=== PATIENT | female | born 1995 | race Hispanic/Latino ===

== ENCOUNTER 2019-10-27 00:43 | Emergency (ER) | payer OTHER ==
[~2019-10-27] VITALS: Ht 162.6 cm; Wt 52.3 kg
[2019-10-27 02:13] LABS: BASO % 0.4 % (0.0-1.0); EOS # 0.3 10^3/uL (0.0-0.5); EOS % 3.1 % (0.0-3.0); HEMATOCRIT 24.7 % (36.0-47.0); HEMOGLOBIN 8.2 g/dl (12.0-15.5); LYMPH # 1.7 10^3/uL (1.5-5.0); LYMPH % 20.3 % (24.0-44.0); MEAN CORPUSCULAR HEMOGLOBIN 29.2 pg (27.0-33.0); MEAN CORPUSCULAR HGB CONC 33.2 g/dl (32.0-36.5); MEAN CORPUSCULAR VOLUME 87.9 fl (80.0-96.0); MONO # 0.4 10^3/uL (0.0-0.8); MONO % 4.8 % (0.0-5.0); NEUTROPHILS # 5.8 10^3/uL (1.5-8.5); PLATELET COUNT, AUTOMATED 255 10^3/uL (150-450); RED BLOOD COUNT 2.81 10^6/uL (4.00-5.40); WHITE BLOOD COUNT 8.2 10^3/uL (4.0-10.0)
[2019-10-27] MEDS ORDERED: NS 1,000 ML IV ONE (02:15)
[2019-10-27] MEDS ORDERED: MORPHINE 4 MG/ML 1ML VIAL/SYRINGE (J2270) IV ONE (02:15)
[2019-10-27] MEDS ORDERED: ONDANSETRON 4MG/2ML VIAL IV ONE (02:15)
[2019-10-27 02:52] LABS: ALBUMIN 3.2 GM/DL (3.2-5.2); ALT/SGPT 13 U/L (12-78); BILIRUBIN,DIRECT 0.1 MG/DL (0.0-0.2); BILIRUBIN,TOTAL 0.3 MG/DL (0.2-1.0); BLOOD UREA NITROGEN 8 MG/DL (7-18); CALCIUM LEVEL 8.3 MG/DL (8.5-10.1); CARBON DIOXIDE LEVEL 26 MEQ/L (21-32); CHLORIDE LEVEL 108 MEQ/L (98-107); GLOMERULAR FILTRATION RATE > 60.0 (>60); GLUCOSE, FASTING 94 MG/DL (70-100); LIPASE 96 U/L (73-393); POTASSIUM SERUM 3.6 MEQ/L (3.5-5.1); SODIUM LEVEL 143 MEQ/L (136-145); TOTAL PROTEIN 5.9 GM/DL (6.4-8.2)
[2019-10-27] MEDS: GASTROGRAFIN SOLUTION 30ML PO SCH ×2 (03:14→03:48)
[2019-10-27] MEDS ORDERED: ISOVUE-370 76% 100ML VIAL As Ordered ONE (03:54)
[2019-10-27 04:15] VITALS: BP 103/62
--- NOTE | 2019-10-27 05:07 | REPVR ---
PROCEDURE INFORMATION: Exam: CT Abdomen And Pelvis With Contrast Exam date and time: 10/27/2019 2:11 AM Age: 24 years old Clinical indication: Abdominal pain; Generalized; Prior surgery; Surgery date: 3-7 days post-operative; Surgery type: Lap for ectopic; Additional info: Gen abd pain S/P laparoscopy for ruptured ectopic TECHNIQUE: Imaging protocol: Computed tomography of the abdomen and pelvis with intravenous contrast. Radiation optimization: All CT scans at this facility use at least one of these dose optimization techniques: automated exposure control; mA and/or kV adjustment per patient size (includes targeted exams where dose is matched to clinical indication); or iterative reconstruction. Contrast material: ISO; Contrast volume: 100 ml; Contrast route: AC; Other contrast: Oral, ggraphin, 600; COMPARISON: No relevant prior studies available. FINDINGS: Liver: Normal. No mass. Gallbladder and bile ducts: Normal. No calcified stones. No ductal dilation. Pancreas: Normal. No ductal dilation. Spleen: Normal. No splenomegaly. Adrenals: Normal. No mass. Kidneys and ureters: Normal. No hydronephrosis. Stomach and bowel: Copious stool in the colon. No abnormal bowel dilatation. No abnormal bowel wall thickening. Appendix: Appendix is normal. Intraperitoneal space: Moderate hemoperitoneum in the pelvis. Small free air in the abdomen and pelvis. Vasculature: Unremarkable. No abdominal aortic aneurysm. Lymph nodes: Unremarkable. No enlarged lymph nodes. Bladder: 1 bladder is partially decompressed. Reproductive: Uterus is normal. Bones/joints: Unremarkable. No acute fracture. Soft tissues: Small gas in the subcutaneous tissue in the ventral abdomen. IMPRESSION: 1. Moderate hemoperitoneum in the pelvis. 2. Copious stool in the colon. 3. Small free air in the abdomen and pelvis. Consistent with postsurgical status. Electronically signed by: Wanda Monroy On 10/27/2019 05:07:13 AM
[2019-10-27] MEDS ORDERED: PERC5TAB12 PO (05:46)
== END 2019-10-27 06:00 | disposition home or self-care (01) ==
LOC: M ED 00:43
DX: G89.18 Other acute postprocedural pain (principal); R10.9 Unspecified abdominal pain
CPT/HCPCS: 74177; 80048; 80076; 81001; 83690; 85025; 93041; 96361; 96374; 96375; 99284; J2270; J2405; Q9963; Q9967

== ENCOUNTER 2020-02-03 14:43 | Emergency (ER) | payer OTHER ==
[~2020-02-03] VITALS: Ht 162.6 cm; Wt 53.0 kg
[~2020-02-03 14:43] MED LIST: PERC5TAB12 PO
[2020-02-03] MEDS ORDERED: CYCL-707 PO (14:48)
[2020-02-03] MEDS ORDERED: IBUP-1114 PO (14:48)
[2020-02-03] MEDS ORDERED: KETOROLAC 30 MG/ML 1ML VIAL IV ONE (16:30)
[2020-02-03] MEDS ORDERED: NS 1,000 ML IV ONE (16:30)
[2020-02-03 16:57] LABS: BASO # 0.1 10^3/uL (0.0-0.2); BASO % 0.5 % (0.0-1.0); EOS # 0.2 10^3/uL (0.0-0.5); EOS % 2.4 % (0.0-3.0); HEMATOCRIT 40.6 % (36.0-47.0); HEMOGLOBIN 12.7 g/dl (12.0-15.5); LYMPH # 2.3 10^3/uL (1.5-5.0); LYMPH % 25.1 % (24.0-44.0); MEAN CORPUSCULAR HEMOGLOBIN 26.3 pg (27.0-33.0); MEAN CORPUSCULAR HGB CONC 31.3 g/dl (32.0-36.5); MEAN CORPUSCULAR VOLUME 84.2 fl (80.0-96.0); MONO # 0.5 10^3/uL (0.0-0.8); MONO % 5.7 % (0.0-5.0); PLATELET COUNT, AUTOMATED 322 10^3/uL (150-450); RED BLOOD COUNT 4.82 10^6/uL (4.00-5.40); WHITE BLOOD COUNT 9.2 10^3/uL (4.0-10.0)
--- NOTE | 2020-02-03 17:21 | REPVR ---
PROCEDURE INFORMATION: Exam: US Pelvis Complete, Transabdominal and US Pelvis, Transvaginal and US Duplex Artery and Vein, Ovaries, Complete Exam date and time: 02/03/2020 5:08 PM Age: 24 years old Clinical indication: Pelvic pain; Additional info: Pelvic pain, recent iud TECHNIQUE: Imaging protocol: Real-time transabdominal and transvaginal pelvic ultrasound (complete) with image documentation. Transvaginal imaging was used for better evaluation of the endometrium and adnexa. Real-time duplex ultrasound scan of the arterial and venous flow of the ovaries with B-mode, color Doppler flow and spectral waveform analysis. COMPARISON: CT ABD/PEL W/IV ORAL CONTRAS 10/27/2019 4:48 AM FINDINGS: Uterus/cervix: 6.7 x 3.2 x 4.1 cm. Normal endometrial thickness, measuring approximately 5 mm. Intrauterine device in adequate position. Right ovary: 3 x 1.9 x 2.2 cm. No mass. Normal arterial and venous ovarian blood flow. Left ovary: 4 x 2.3 x 3.5 cm. 1.9 x 1.7 x 2 cm follicle. No solid mass. Normal arterial and venous ovarian blood flow. Intraperitoneal space: Trace nonspecific free pelvic fluid, likely physiologic. Bladder: Normal. IMPRESSION: No acute sonographic findings. Electronically signed by: Luis Cain On 02/03/2020 17:22:07 PM
[2020-02-03] MEDS ORDERED: MIRA3350 PO (19:10)
[2020-02-03] MEDS ORDERED: MAGNESIUM CITRATE 300 ML BTL PO ONE (19:15)
[2020-02-03 19:28] VITALS: BP 114/73
--- NOTE | 2020-02-13 18:27 | REP ---
KUB REASON FOR EXAM: Hard stool. FINDINGS: A moderate to large amount of stool is seen throughout the right colon with moderate stool content throughout the transverse and distal colon. There is no free intraperitoneal air. The organ silhouettes and so far as delineated are within normal limits. There is a T-shaped radiodensity in the pelvis consistent with an intrauterine device (IUD). The osseous structures are within normal limits. IMPRESSION: Stool pattern as described above. Correlate clinically. MTDD
== END 2020-02-03 19:30 | disposition home or self-care (01) ==
LOC: M ED 14:43
DX: K59.00 Constipation, unspecified (principal); R10.30 Lower abdominal pain, unspecified; Z97.5 Presence of (intrauterine) contraceptive device
CPT/HCPCS: 74018; 76830; 76856; 80047; 81001; 84702; 85025; 93976; 96361; 96374; 99284; J1885

== ENCOUNTER 2020-05-30 06:11 | Day surgery (SDC) | payer OTHER ==
[~2020-05-30] VITALS: Ht 162.6 cm; Wt 49.9 kg
[~2020-05-30 06:11] MED LIST changes: +CYCL-707 PO; +IBUP-1114 PO; +MIRA3350 PO
[2020-05-30 06:39] LABS: HEMATOCRIT 42.1 % (36.0-47.0); HEMOGLOBIN 12.9 g/dl (12.0-15.5); MEAN CORPUSCULAR HEMOGLOBIN 25.7 pg (27.0-33.0); MEAN CORPUSCULAR HGB CONC 30.6 g/dl (32.0-36.5); PLATELET COUNT, AUTOMATED 337 10^3/uL (150-450); RED BLOOD COUNT 5.01 10^6/uL (4.00-5.40); WHITE BLOOD COUNT 7.1 10^3/uL (4.0-10.0)
[2020-05-30] MEDS ORDERED: ACETAMINOPHEN 650 MG SUPP PR ONE (07:00)
[2020-05-30] MEDS ORDERED: LR 1,000 ML IV ONE (07:00)
[2020-05-30 07:03] LABS: BLOOD UREA NITROGEN 10 MG/DL (7-18); CARBON DIOXIDE LEVEL 27 MEQ/L (21-32); CHLORIDE LEVEL 109 MEQ/L (98-107); GLOMERULAR FILTRATION RATE > 60.0 (>60); GLUCOSE, FASTING 93 MG/DL (70-100); HCG, SERUM QUANTITATIVE < 1.0 MIU/ML; POTASSIUM SERUM 4.2 MEQ/L (3.5-5.1); SODIUM LEVEL 142 MEQ/L (136-145)
[2020-05-30] MEDS ORDERED: BUPIVACAINE HCL 0.25% 10ML VIAL As Ordered ONE (07:11)
[2020-05-30] MEDS ORDERED: METHYLENE BLUE 0.5% (5MG/ML) 10 ML AMP (PROVAYBLUE) As Ordered ONE (07:12)
[2020-05-30] MEDS ORDERED: SCOPOLAMINE 1MG TRANSDERMAL PATCH As Ordered ONE (07:17)
[2020-05-30] MEDS ORDERED: LIDOCAINE 2% 100MG/5ML SDV (FOR ANES.) As Ordered ONE (07:20)
[2020-05-30] MEDS ORDERED: propofoL 200 MG/20 ML VIAL As Ordered ONE ×2 (07:20→07:53)
[2020-05-30] MEDS ORDERED: ROCURONIUM BROMIDE 50 MG/5 ML VIAL As Ordered ONE (07:20)
[2020-05-30] MEDS ORDERED: fentaNYL 100 MCG/2 ML INJECTION (J3010) As Ordered ONE ×2 (07:21→08:06)
[2020-05-30] MEDS ORDERED: dexameTHASONE 4 MG/ML 1ML VIAL (J1100 PER 1MG) As Ordered ONE (07:21)
[2020-05-30] MEDS ORDERED: ONDANSETRON 4MG/2ML VIAL As Ordered ONE ×2 (07:21→09:12)
[2020-05-30] MEDS ORDERED: MIDAZOLAM INJ 2MG/2ML VIAL (J2250 PER 1MG) As Ordered ONE (07:21)
[2020-05-30] MEDS ORDERED: ACETAMINOPHEN 650 MG SUPP As Ordered ONE (07:25)
[2020-05-30] MEDS ORDERED: SCOPOLAMINE 1MG TRANSDERMAL PATCH TOP ONE (07:45)
[2020-05-30] MEDS ORDERED: KETOROLAC 60MG 2ML VIAL As Ordered ONE (08:25)
[2020-05-30] MEDS ORDERED: SUGAMMADEX SODIUM 500 MG/5 ML VIAL (BRIDION) As Ordered ONE (08:26)
[2020-05-30] MEDS ORDERED: METOCLOPRAMIDE INJ 10MG/2ML VIAL (J2765 PER 1) As Ordered ONE (08:30)
[2020-05-30] MEDS ORDERED: LR 1,000 ML IV SCH (09:15)
[2020-05-30] MEDS ORDERED: ONDANSETRON 4MG/2ML VIAL IV PRN (09:15)
[2020-05-30] MEDS ORDERED: oxyCODONE 5MG TAB PO PRN (09:15)
[2020-05-30] MEDS: fentaNYL 100 MCG/2 ML INJECTION (J3010) IV PRN ×2 (09:28→09:33)
[2020-05-30] MEDS ORDERED: HYDROMORPHONE HCL 0.5 MG/ 0.5 ML SYRINGE (J1170 PER 1) IV PRN (09:30)
[2020-05-30 10:30] VITALS: BP 110/75
[2020-05-30] MEDS ORDERED: KETOROLAC 30 MG/ML 1ML VIAL IV PRN (12:30)
--- NOTE | 2020-05-31 11:59 | RO ---
OPERATIVE NOTE DATE OF OPERATION: 05/30/2020 PREOPERATIVE DIAGNOSIS: Right lower quadrant pain, post-ectopic . POSTOPERATIVE DIAGNOSIS: Stage 1 endometriosis, inflammatory effect post-ectopic , nonpatent left fallopian tube. ANESTHESIA: General, plus local anesthetic for intraperitoneal procedures. ESTIMATED BLOOD LOSS: Less than 20 mL. SURGEON: Azael Covington MD POISING INSPECTOR: Carmina Goldberg MD PROCEDURE: After adequate time out prepped and draped in lithotomy position. Betts catheter in the bladder draining clear urine. Acetaminophen suppository 1300 mg per rectum, sequentials in place, no antibiotics required. COVID negative. A weighted speculum was placed in the vagina. Single tooth tenaculum was placed on the anterior lip of the cervix. The IUCD strings were noted to be in place. A bulb catheter was placed in the intrauterine cavity after sounding to depth of 6 cm in order to chromotubate the left fallopian tube. Re-prepping and draping a small subumbilical incision was made. Veress needle was applied. 3.8 liters of CO2 at flow rate of 14 to pressure of 15. Direct entry into the abdomen, no evidence of hemorrhage, perforation or bleeding. Right upper quadrant appeared to be normal. Gallbladder area was normal. Right round ligament was normal. Right ovary and tube were removed. There were spots of endometriosis on the proximal end of what remained of the tube on the right side. The patient is menstruating at the present time and there are various stages of endometriosis. Red spots, there are some dark spots and white spots indicating endometriosis in various stages. The most striking thing is the inflammatory process in the posterior aspect of the uterus with this white shaggy type inflammatory effect, either post-ectopic or end stage of endometriosis. On the left side the left round ligament was normal. The left cornual area was white with some white again inflammatory effect and two or three spots of endometriosis actively on that side. The left ovary appeared to be normal. The left tube had a normal contour, had normal fimbriated end. We would document this lady as having stage 1 endometriosis, no evidence of endometriosis on the appendiceal area. There was no evidence of adhesions. No evidence of scar tissue. Explanation for this lady's pelvic pain may be the endometriosis. We then attempted to chromotubate the left tube. The uterus itself filled but the cornu on the left side did not fill at all indicating possibility of cornual obstruction, either related to endometriosis or silent previous STD. Etiology either way did not produce any spill or patency from the cornu down through normal looking tube. With instrument and pad count correct we reevaluated again and found no other evidence of pathology. The left upper quadrant was normal. We then went ahead and removed the right 3 mm port. We then deflated the abdomen, removed the mainstem port, subcuticular stitches were placed in either site. Steri-Strips were applied. The Betts catheter was removed. Single tooth tenaculum was removed. The IUCD strings were still in place. The patient was sent to recovery in good condition. Options for this lady could be short course of Depo-Lupron of 3 months to see if it resolves the issue of her pain and reduce the endometriosis that is active. She still has a Mirena in which is probably not effective for endometriosis. The other option is after 3 month course of Depo-Lupron do hysterosalpingogram to evaluate tubal function on the left side and/or repeat the laparoscopy to stage and grade any residual endometriosis. The final option would be if cornu is still compromised she could do IUI or in vitro. All options will be discussed with the patient. The patient was sent to recovery in good condition. cc: Jose David Hernandes OB
== END 2020-05-30 10:35 | disposition home or self-care (01) ==
LOC: M SDC 06:11
PROVIDERS: ATTEND Obstetrics & Gynecology
DX: N80.3 Endometriosis of pelvic peritoneum (principal); R10.31 Right lower quadrant pain; M54.5 Low back pain; Z90.79 Acquired absence of other genital organ(s); Z97.5 Presence of (intrauterine) contraceptive device
CPT/HCPCS: 36415; 58350; 80048; 84702; 85027; 96374; 96375; J1100; J1885; J2250; J2405; J2765; J3010; Q9968

== ENCOUNTER 2020-07-27 12:36 | Emergency (ER) | payer OTHER ==
[~2020-07-27] VITALS: Ht 162.6 cm; Wt 50.0 kg
--- OUTSIDE RECORDS SUMMARY | 2020-07-27 13:12 | CCD ---
Author Author [facility] Organization [facility] Address Unknown Phone Unavailable Care Team Providers Care Core Inserter Name Role Phone Dodard, Jersey DO Unavailable Unavailable Dodard, Jersey DO Unavailable Unavailable Dodard, Jersey DO Unavailable Unavailable Dodard, Jersey DO Unavailable Unavailable Dodard, Jersey DO Unavailable Unavailable Dodard, Jersey DO Unavailable Unavailable Dodard, Jersey DO Unavailable Unavailable Dodard, Jersey DO Unavailable Unavailable Dodard, Jersey DO Unavailable Unavailable Dodard, Jersey DO Unavailable Unavailable Dodard, Jersey DO Unavailable Unavailable Dodard, Jersey DO Unavailable Unavailable Dodard, Jersey DO Unavailable Unavailable Dodard, Jersey DO Unavailable Unavailable Dodard, Jersey DO Unavailable Unavailable Dodard, Jersey DO Unavailable Unavailable Dodard, Jersey DO Unavailable Unavailable Dodard, Jersey DO Unavailable Unavailable Dodard, Jersey DO Unavailable Unavailable Dodard, Jersey DO Unavailable Unavailable Dodard, Jersey DO Unavailable Unavailable Dodard, Jersey DO Unavailable Unavailable Dodard, Jersey DO Unavailable Unavailable Dodard, Jersey DO Unavailable Unavailable Dodard, Jersey DO Unavailable Unavailable Dodard, Jersey DO Unavailable Unavailable Dodard, Jersey DO Unavailable Unavailable Dodard, Jersey DO Unavailable Unavailable Dodard, Jersey DO Unavailable Unavailable Dodard, Jersey DO Unavailable Unavailable Dodard, Jersey DO Unavailable Unavailable Dodard, Jersey DO Unavailable Unavailable Dodard, Jersey DO Unavailable Unavailable Dodard, Jersey DO Unavailable Unavailable Dodard, Jersey DO Unavailable Unavailable Dodard, Jersey DO Unavailable Unavailable Dodard, Jersey DO Unavailable Unavailable Dodard, Jersey DO Unavailable Unavailable Dodard, Jersey DO Unavailable Unavailable Dodard, Jersey DO Unavailable Unavailable Dodard, Jersey DO Unavailable Unavailable Dodard, Jersey DO Unavailable Unavailable Dodard, Jersey DO Unavailable Unavailable Dodard, Jersey DO Unavailable Unavailable VENERUS, Iftikhar SHARMA MD Unavailable Unavailable VENERUS, J LG PARKER Unavailable Unavailable VENERUS, J LG PARKER Unavailable Unavailable VENERUS, J LG PARKER Unavailable Unavailable VENERUS, J LG PARKER Unavailable Unavailable VENERUS, J LG MD Unavailable Unavailable VENERUS, J LG MD Unavailable Unavailable VENERUS, J LG MD Unavailable Unavailable VENERUS, J LG PARKER Unavailable Unavailable Re-disclosure Warning The records that you are about to access may contain information from federally-assisted alcohol or drug abuse programs. If such information is present, then the following federally mandated warning applies: This information has been disclosed to you from records protected by federal confidentiality rules (42 CFR part 2). The federal rules prohibit you from making any further disclosure of this information unless further disclosure is expressly permitted by the written consent of the person to whom it pertains or as otherwise permitted by 42 CFR part 2. A general authorization for the release of medical or other information is NOT sufficient for this purpose. The Federal rules restrict any use of the information to criminally investigate or prosecute any alcohol or drug abuse patient.The records that you are about to access may contain highly sensitive health information, the redisclosure of which is protected by Article 27-F of the [facility] Public Health law. If you continue you may have access to information: Regarding HIV / AIDS; Provided by facilities licensed or operated by the [facility] Office of Mental Health; or Provided by the [facility] Office for People With Developmental Disabilities. If such information is present, then the following [facility] mandated warning applies: This information has been disclosed to you from confidential records which are protected by state law. State law prohibits you from making any further disclosure of this information without the specific written consent of the person to whom it pertains, or as otherwise permitted by law. Any unauthorized further disclosure in violation of state law may result in a fine or half-way sentence or both. A general authorization for the release of medical or other information is NOT sufficient authorization for further disc losure. Allergies and Adverse Reactions Type Description Substance Reaction Status Data Source(s ) No Known Allergies No Known Allergies [facility] Encounters Encounter Providers Location Date Indications Data Source(s ) Outpatient Attender: Jersey Tillman DOAttender: LG Loving MD 10/22/2019 10:52:00 PM EDT - 10/23/2019 03:10:00 PM EDT [facility] Patient discharged. Outpatient 10/22/2019 07:02:00 PM EDT [facility] Insurance Providers Payer name Policy type / Coverage type Policy ID Covered republican ID Covered republican's relationship to hurtado Policy [place] Plan Information [facility] ACTIVE DUTY [id number] SP [id number] [facility] HUMANA - O/P [id number] 18 [id number] Problems, Conditions, and Diagnoses Code Display Name Description Problem Type Effective Dates Data Source(s) [id number] Right tubal without intrauteri ne Right tubal without intrauterine Diagnosis 10/22/2019 10:52:00 PM EDT [facility] Results ID Date Data Source [id number] 07/05/2020 10:49:00 AM EST [facility] Name Value Range Interpretation Code Description Data Cindy rce(s) Supporting Document(s) SARS coronavirus 2 RNA Not Detected [facility] This lab was ordered by [facility] Laboratory and reported by [facility]. ID Date Data Source [id number] 05/26/2020 11:10:00 AM EST [facility] Name Value Range Interpretation Code Description Data Cindy rce(s) Supporting Document(s) SARS coronavirus 2 RNA [facility] This lab was ordered by [facility] Laboratory and reported by [facility]. ID Date Data Source [id number] 10/23/2019 11:00:00 [place] [address] OPERATIVE SUMMARYNAME: BUDDY EUGENIO Loving DATE OF : 1995ATTENDING PHYS: JERSEY TILLMAN DO DATE: 10/22/19 MR#: [id number] OF PROCEDURE: 10/22/19HISTORY OF PRESENT ILLNESS:This patient is a 24-year-old female who was admitted through the emergency room afterpresenting with extreme abdominal pain. She was found to have a ruptured right ectopic .She was then taken to the operating room for exploratory laparoscopy and removal of ectopic.PREOPERATIVE DIAGNOSIS: 1. Ruptured ectopic . 2. Acute abdominal pain.POSTOPERATIVE DIAGNOSIS: 1. Ruptured ectopic . 2. Acute abdominal pain. 3. Ruptured right fallopian ectopic with approximately 1 liter of clotted blood in her belly.PROCEDURE: 1. Laparoscopic right salpingectomy. 2. Evacuation of hemoperitoneum.ANESTHESIA: General.SURGEON: Jersey Tillman DOCOMPLICATIONS: None.ESTIMATED BLOOD LOSS: 1000 cc hemoperitoneumFINDINGS: A ruptured right ectopic approximately 8 weeks in size with large amountof hemoperitoneum. Normal appearing left ovary and tube.DESCRIPTION OF PROCEDURE:After obtaining informed consent, the patient was taken to the operating room where generalanesthetic was found to be adequate. She was then draped and prepped in the usual sterile fashionin the dorsal lithotomy position. At this point, a straight catheter of the bladder was performed forapproximately 200 cc of clear urine. We then placed a uterine manipulator. Attention was turned tothe abdomen where a 10 mm infraumbilical incision was made. Using the Veress needle, the [address] [place] [place] [address] OPERATIVE SUMMARYNAME: BUDDY Loving DATE OF : 1995ATTENDING PHYS: JERSEY TILLMAN DO DATE: 10/22/19 MR#: [id number] was insufflated with CO2 gas to approximately 3.5 liters. We then placed a 10-11 mmTrocar on the right side. At this point, the abdomen and pelvis were inspected. A large amount ofhemoperitoneum noted with a ruptured right ectopic . The Guicho harmonic scalpel wasused with the patient in Trendelenburg. The fallopian tube was transected all the way up to thecornual area and this was removed with the ectopic through an endobag. The pelvis was thencopiously irrigated with normal saline and suctioned out. Approximately 1000 cc ofhemoperitoneum was evacuated. The entire abdomen was irrigated with normal saline andsuctioned out. No other evidence of bleeding noted. At this point, all the laparoscopic instrumentswere removed. The laparoscopic ports were closed using 0-Vicryl fascia and Dermabond on theskin. Please note that the patient did received 2 units of packed RBCs intraoperative and she wastransferred to the recovery room in stable condition.cc: [facility].DD: JERSEY TILLMAN DO 10/22/19 23:03DT: ABHINAV 10/23/19 22:49DS: JERSEY TILLMAN DO 11/16/19 15:16 2 Name Value Range Interpretation Code Description Data Cindy rce(s) Supporting Document(s) ID Date Data Source [id number] 10/22/2019 11:33:00 [place] [address] HISTORY AND PHYSICALNAME: BUDDY Loving ROOM#: [id number] OF : 1995 MR#: [id number] PHYS: JERSEY TILLMAN DO DATE: 10/22/19HISTORY OF PRESENT ILLNESS:This patient is a 24-year-old female who was brought to the emergency room via ambulance after presentingwith acute sharp abdominal pain. While in the emergency room, she was evaluated and was found to have aright ectopic with free fluid in the abdomen. Upon my evaluation, the patient was found on astretcher in extreme abdominal pain, unable to barely speak. Her vitals were reviewed. She was tachycardicand currently receiving fluid and waiting a blood transfusion. Her full records were evaluated as well as theultrasound reviewed.PAST MEDICAL HISTORY:Denies.PAST SURGICAL HISTORY:Denies.SOCIAL HISTORY:She denies any alcohol, drug or cigarette smoking.REVIEW OF SYSTEMS:Unremarkable.MEDICATIONS:None.ALLERGIES:No known drug allergies.PHYSICAL EXAMINATION:GENERAL: Normal appearing female in mild to severe distress on stretcher.ABDOMEN: Mildly distended with significant guarding and rebound.PELVIC: Examination deferred.EXTREMITIES: No cyanosis, clubbing or edema.LABORATORY DATA:Ultrasound reviewed and was consistent with a ruptured ectopic , which was documented atapproximately 8 weeks with a heart rate.ASSESSMENT: 1. Ruptured ectopic . [address] [place] [address] HISTORY AND PHYSICALNAME: BUDDY Loving ROOM#: [id number] OF : 1995 MR#: [id number] PHYS: JERSEY TILLMAN DO DATE: 10/22/19 2. Acute abdomen.PLAN:Admit patient to the OR for laparoscopic removal of right ectopic and evacuation ofhemoperitoneum. Informed consent obtained from the patient. Awaiting the OR for an exploratorylaparoscopy.cc: [facility].DD: JERSEY TILLMAN DO 10/22/19 23:07DT: ABHINAV 10/22/19 23:27DS: JERSEY TILLMAN DO 11/16/19 15:16 2 Name Value Range Interpretation Code Description Data Cindy rce(s) Supporting Document(s) ID Date Data Source [id number] 10/25/2019 11:14:00 AM EDT [facility] [address] [place] [address] PHONE: [phone] FAX: [phone] Name .................. : BUDDY EUGENIO Inder Acct Number.................. : [id number] ROOM. ................. : 008-1 MR Number ................... : [id number] Stay type ............. : O/P Discharge Date......... ... : Admit Date ......... : 0 10/22/19 Admit Phys .................... : LAYNE COELLO Date of ....... : 1995 Family Phys ................... : UNKNOWN NADIA Phone .................. : [phone] Age ................................ : 24 Film# .................. .:[id number] Sex ................................. : F Unsigned transcriptions are preliminary reports and do not represent a medical or legal document OB 1ST TRI UP TO 14 WEEKS [address]59 COMPLETE:10/22/19 19:39 [facility] [address] Reason(s): / Abdominal pain / cramps FIRST TRIMESTER OB ULTRASOUND: INDICATION: , abdominal pain and cramping. FINDINGS: There is no evidence of an intrauterine . In the right adnexa, there is an ectopic and measurements estimated gestational age of 8 weeks 1 day. The right ovary is sonographically normal. There is a 2.1 cm simple cyst in the left ovary, within normal limits for a reproductive age female. Free fluid is noted throughout the pelvis. IMPRESSION: Right adnexal ectopic with an estimated gestational age of 8 weeks 1 day and a heart rate of 161 beats p er minute. Electronically Reviewed and Signed By Austin Leary M.D. , 10/25/19 11:14, DONNA Transcribe Initials: [place] Transcribe Date: 10/22/19 23:36, Dictation Date: Copy for: EMERGENCY DEPT via mode Copy for: 710 MED REC DISCHARGED Page 1 of 1 Name Value Range Interpretation Code Description Data Cindy rce(s) Supporting Document(s) ID Date Data Source [id number] 10/22/2019 06:29:00 PM EDT [facility] 1 OrderSheet [facility] Emergency Department [address] [place] [address] Phone #: ext- [phone] 10/22/2019 18:23 Patient: EUGENIO GOODWIN Sex: F : 1995 Age: 24yWEIGHT:50.8 kg (S) HEIGHT:64 inches (S) BMI:19.2ALLERGIES: NoneCHIEF COMPLAINT: abdominal painDIAGNOSIS: Ectopic pregnancyLAB ORDERSOrder Description Priority Entered Acknowledged InitialedUrinalysis (Clean STAT 18:28 10/22/2019 Ack'd: 18:44Catch) Zuri Kim Physician; R.N.Blood Culture STAT 18:10/22/2019 18:39 Amy King0m X2 (Sched Lg Reyes R.N.18:28 10/22/2019) Physician;Blood Culture STAT 18:10/22/2019 18:39 Amy King0m X2 (Sched Lg Reyes R.N.18:38 10/22/2019) Physician;CBC w Diff STAT 18:10/22/2019 18:39 Simi King RJorgeNJorge Physician;CMP STAT 18:10/22/2019 18:39 Simi King RJorgeNJorge Physician;CPK STAT 18:10/22/2019 18:39 Simi King RJorgeNJorge Physician;D-Dimer STAT 18:10/22/2019 18:39 Simi King RAmaury Physician;HCG Serum Qual STAT 18:10/22/2019 18:39 Simi King RJorgeNJorge Physician;Lipase STAT 18:10/22/2019 18:39 Simi King RAmaury Physician;Lactic Acid STAT 18:10/22/2019 18:39 Simi King RJorgeNJorge Physician; 2 OrderSheet [facility] Emergency Department [address] [place] [address] Phone #: ext- [phone] 10/22/2019 18:23 Patient: EUGENIO GOODWIN Sex: F : 1995 Age: 24yUrine Drug Screen STAT 19:07 10/22/2019 Lg Reyes Physician;Beta-HCG, Quant STAT 19:12 10/22/2019 19:41 Sorbero,Serum Lg Nicoals R.N. Physician;Blood Bank -see STAT 19:32 10/22/2019 19:41 Sorbero,paper order Lg Nicolas R.N. Physician; NOTES: Type and cross 2 units PRBCsDIAGNOSTIC STUDY ORDERSOrder Description Priority Entered Acknowledged InitialedUS OB 1ST TRI UP STAT 19:15 10/22/2019 19:41 Sorbjanel,TO 14 WEEKS Lg Nicolas R.N.(Oxygen?(No)) Physician;(IV?(Yes)) NOTES: Abdominal cramps / pregnan cy Reason for Study: / Abdominal pain / crampsMEDICATION/IV/DRIP/FLUID ORDERSOrder Description Priority Entered Acknowledged InitialedIV NS : Bolus 1000 18:28 10/22/2019 Ack'd: 18:44 18:52 Sorbero,mL, then 250 mL/hr Zuri Kim R.N.(can be titrated per Physician; R.N.additionalphysicianinstruction)Zofran 4 mg IVP X 1 18:28 10/22/2019 18:39 Nuha Kingose: 4 mg (NOW Lg Reyes R.NJorgex1) Physician;Protonix IVPB 40 18:28 10/22/2019 18:39 Simi Kingmg with Dextrose Lg Reyes R.N.100 ml spike bag Physician;(D5W)Morphine IVP 2 mg 18:29 10/22/2019 18:32 Martin(NOW, HIGH ALERT Lg Keating R.N.MEDICATION) Physician;Morphine IVP 2 mg 18:45 10/22/2019 18:51 Arben(NOW, HIGH ALERT Lg Nicolas RJorgeNJorgeMEDICATION) Physician;NS IV : Bolus 1000 19:29 10/22/2019 19:43 Sorbero,mL, then 1000 Lg Nicolas R.N. 3 OrderSheet [facility] Emergency Department [address] [place] [address] Phone #: ext- [phone] 10/22/2019 18:23 Patient: EUGENIO GOODWIN Sex: F : [birth year] Age: 24ymL/hr (can be Physician;titrated peradditionalphysicianinstruction)GENERAL ORDERSOrder Description Priority Entered Acknowledged InitialedCardiac Monitor 18:10/22/2019 18:32 Martin(continuous) Lg Keating R.N. Physician;EKG 18:10/22/2019 18:40 Simi King R.N. Physician;Saline Lock 18:10/22/2019 18:32 Lg Salazar R.N. Physician;Pulse oximeter 18:10/22/2019 18:32 Martin(Continuous) Lg Keating R.N. Physician;[Electronically signed by Lg Reyes (00:07 10/23/2019)][Electronically signed by Fidencio Theodore R.N. (10:02 10/25/2019)][Electronically locked by Fidencio Theodore R.N. (10:10/25/2019)] Name Value Range Interpretation Code Description Data Cindy rce(s) Supporting Document(s) ID Date Data Source [id number] 10/22/2019 06:29:00 PM EDT [facility] 1 Medication Reconciliation Report [facility] Emergency Department [address] [place] [address] Phone #: ext- [phone] 10/22/2019 18:23 Patient: EUGENIO GOODWIN Sex: F : 1995 Age: 24yWeight: 50.8 kgHeight/Length: 64 in.BMI: 19.2ALLERGIES: NoneThe patient's Home Medications are listed below:NONE.The source(s) of the original Home Medication information:patientThe following Medications were given to the patient in the Emergency Department:Morphine [IVP] IVP 2 mg, administe red: 10/22/2019 6:32:00 PMZofran [IVP] IVP 4 mg, administered: 10/22/2019 6:39:00 PMProtonix [IVPB] IVPB bolus 0, then 40 mg 100 mL/hr, administered: 10/22/2019 6:39:00 PMMorphine [IVP] IVP 2 mg, administered: 10/22/2019 6:51:00 PMIV NS IV Fluids bolus 0, then 1500 mL/hr, administered: 10/22/2019 6:52:00 PMNS [IV] IV Fluids bolus 0, then 1500 mL/hr, administered: 10/22/2019 7:43:00 PMThe following Medications were prescribed to the patient:None. Name Value Range Interpretation Code Description Data Cindy rce(s) Supporting Document(s) ID Date Data Source [id number] 10/22/2019 06:29:00 PM EDT [facility] 1 Medication Administration Record [facility] Emergency Department [address] [place] [address] Phone #: ext- [phone] 10/22/2019 18:23 Patient: EUGENIO GOODWIN Sex: F : 1995 Age: 24yWeight: 50.8 kgHeight/Length: 64 inBMI: 19.2ALLERGIES: None Date/Time Medication Administered Medication OrderedStart IV NS IV NS : Bolus 1000 mL, then 21299:52 10/22/2019 Dose: IV Fluids mL/hr (can be titrated Fidencio Alicia R.N. Rate: 1500 mL/hr over 40 minute(s) additional physician instruction)---- Dispensed: 1000 mL bagStop Site: #2 right AC19:31 10/22/2019Fidencio Theodore R.N.Given ZOFRAN [IVP] (ONDANSETRON HCL) Zofran 4 mg IVP X 1 dose: 4 mg18:39 10/22/2019 Dose: 4 mg IVP (NOW x1)Simi King R.N. Site: #1 left ACStart PROTONIX [IVPB] (PANTOPRAZOLE Protonix IVPB 40 mg with18:39 10/22/2019 SODIUM) Dextrose 100 ml spike bag (D5W)Simi King R.N. Dose: 40 mg IVPB---- Rate: 100 mL/hr over 30 minute(s)Stop Dispensed: 50 mL bag19:42 10/22/2019 Site: #1 left Fidencio Rodríguez R.N.Given MORPHINE [IVP] Morphine IVP 2 mg (NOW, HIGH18:32 10/22/2019 Dose: 2 mg IVP ALERT MEDICATION)Zuri Salazar R.N. Site: #1 left ACGiven MORPHINE [IVP] Morphine IVP 2 mg (NOW, HIGH18:51 10/22/2019 Dose: 2 mg IVP ALERT MEDICATION)Fidencio Theodore R.N. Site: #2 right ACStart NS [IV] NS IV : Bolus 1000 mL, then 263089:43 10/22/2019 Dose: IV Fluids mL/hr (can be titrated Fidencio Alicia R.N. Rate: 1500 mL/hr over 40 minute(s) additional physician instruction)---- Dispensed: 1000 mL bagStop Site: #2 right AC20:24 10/22/2019Fidencio Theodore R.N. Name Value Range Interpretation Code Description Data Cindy rce(s) Supporting Document(s) ID Date Data Source [id number] 10/22/2019 06:29:00 PM EDT [facility] 1 General Instructions [facility] Emergency Department [address] [place] [address] Phone #: ext- [phone] 10/22/2019 18:23 Patient: EUGENIO GOODWIN Sex: F : 1995 Age: 24yRuptured right tubal ectopic with hypotension and shock; positive test in emergencydepartment. Ultrasound demonstrated an extrauterine .(Electronically signed by Lg Reyes, Physician 10/23/2019 00:07) Name Value Range Interpretation Code Description Data Cindy rce(s) Supporting Document(s) ID Date Data Source [id number] 10/22/2019 06:29:00 PM EDT [facility] 1 Clinical Report - Nurses [facility] Emergency Department [address] [place] [address] Phone #: [phone] 10/22/2019 18:23 Patient: EUGENIO GOODWIN Sex: F : 1995 Age: 24yTRIAGEArrived by private vehicle. Historian: EMS.Triage time: 18:23 10/22/2019. Acuity: LEVEL 2.Chief Complaint: ABDOMINAL PAIN.Alert. In distress.Onset. (45 MINUTES AGO). ( Per EMS pt states she was sleeping and woke up suddenly with sharp,severe, diffuse abd pain, unknown if pt may be . Per EMS pt original BP was 86/50, started torecieve 500 cc bolus and last SBP 115.). The patient has had nausea. ( Pt c/o 12 mile ruck august. Pt still has appendix. Per EMS pt was quite diaphoretic when they arrived).Treatment HOLE DIGGER:(4mg Zofran).SEPSIS SCREEN: Sepsis Screen negative. No suspected or confirmed signs of infection present. (18:). --18:31 10/22/19 Zuri Salazar R.N.18:23 10/22/19. BP: 104/63. MAP: 76. HR: 73. RR: 17. O2 saturation: 100%. Temp: 96.8 F (temporal).Pain level now: 03/18. --18:31 10/22/19 Zuri Salazar R.N.Weight: 50.8 kg stated. Height/Length: 64 inches Per Patient. BMI: 19.2. --18:22 10/22/19 Zuri Salazar R.N.MedicationsNone. --18:27 10/22/19 Zuri Salazar R.N.AllergiesNone. --18:27 10/22/19 Zuri Salazar R.N.PROBLEMS:no known problems.Medication/allergy information source: the patient. --18:31 10/22/19 Zuri Salazar R.N.ADDITIONAL SURGERIES:no known surgeries.HistoryPAST MEDICAL HX: Last normal menstrual period- 08/30/19.SOCIAL HX: Never smoker. No alcohol use or drug use. Recent travel- (none). The patient has had 2 Clinical Report - Nurses [facility] Emergency Department [address] [place] [address] Phone #: ext- [phone] 10/22/2019 18:23 ---- Patient: EUGENIO GOODWIN Sex: F : 1995 Age: 24y contact with a sick individual. (none). The patient was offered HIV testing but declined. The patient was offered hepatitis C testing but declined. Patient education was provided. The patient has not traveled outside the [place] Infectious disease exposure: Patient is not a known carrier of hepatitis, HIV, MRSA, VRE or CRE. SELF HARM ASSESSMENT: Self harm assessment was performed. The patient answered "no" to the question(s) "Do you have thoughts of harming or killing yourself?" and "Do you have a plan for harming or killing yourself?". ABUSE ASSESSMENT: Abuse assessment. The patient had positive responses to the question(s) "Do you feel safe in your home?". Abuse denied. No suspicion of abuse. No report of abuse. NUTRITIONAL RISK ASSESSMENT: The nutritional risk assessment revealed no deficiencies. FUNCTIONAL ASSESSMENT: Functional assessment: no impairments noted. LEARNING NEEDS ASSESSMENT: The learning needs assessment revealed no barriers. FALL RISK ASSESSMENT: Fall risk assessment completed. No risk factors identified. SKIN INTEGRITY ASSESSMENT: Skin integrity risk assessment completed. No skin integrity risk identified. --18:31 10/22/19 Zuri Salazar R.N. Interventions Identification band on patient. --18:31 10/22/19 Zuri Salazar R.N.PHYSICAL [id number] 10/22/19. To room via stretcher. Patient gowned.GENERAL / NEURO / PSYCH: Alert. Oriented X 4. Appears in pain and in distress.HEENT: Mucous membranes are pink.RESPIRATORY: Respirations not labored. Breath sounds within normal limits.CVS: Capillary re fill less than 2 seconds.GI / : Abdomen soft and nontender. Bowel sounds within normal limits.SKIN: Skin is warm and dry. --18:44 10/22/19 Fidencio Theodore R.N.NURSING PROGRESS NOTES18:28 10/22/2019 Site #1 started prior to arrival by EMS via IV in the left antecubital space with an 18gangiocath, with aseptic technique and good blood return. --18:32 10/22/19 Zuri Salazar R.N. 18:32 10/22/2019 Morphine IVP 2 mg given over 2 minute(s) via site #1. Allergies verified and confirmed 5 rights. IV patency established. IV site checked: no pain, redness, or swelling. IV flushed thoroughly pre- and post-medication administration. IVP given by RN. Information reviewed with patient including reason for taking this medication, signs of allergic reaction, precautions and sedative warning. Verbalizes understanding. --18:32 10/22/19 Zuri Salazar R.N. 3 Clinical Rep ort - Nurses [facility] Emergency Department [address] [place] [address] Phone #: ext- [phone] 10/22/2019 18:23 Patient: EUGENIO GOODWIN Sex: F : 1995 Age: 24yCardiac monitor, NIBP monitor and pulse oximeter placed on patient; color television console monitor- Lead II; monitoralarms on; monitor strip added to paper chart. Patient gowned. Reassurance given. Three patientidentifiers checked. Call light placed in reach. Side rails up x 2. Bed placed in lowest position. Brakesof bed on. Patient ready for evaluation- ED physician notified. --18:32 10/22/19 Zuri Salazar R.N.18:33 10/22/2019 Site #2 started via IV in the right antecubital space with an 20g angiocath, with aseptictechnique and good blood return; one attempt. Blood drawn: rainbow set. Labeled in the presence of thepatient and sent to the lab. Saline lock flushed with 10 mL saline (placed by Angel Theodore RN). --18: Zuri Salazar R.N.18:39 10/22/2019 Zofran (Ondansetron HCl) IVP 4 mg given over 2 minute(s) via site #1. Allergies verifiedand c onfirmed 5 rights. IV patency established. IV site checked: no pain, redness, or swelling. IV flushedthoroughly pre- and post-medication administration. IVP given by RN. Information reviewed with patientincluding reason for taking this medication, signs of allergic reaction and precautions. Verbalizesunderstanding. --18:39 10/22/19 Simi King R.N.18:39 10/22/2019 Started 40 mg of Protonix (Pantoprazole Sodium) IVPB in bag #1 50 mL; at 100 mL/hrover 30 minute(s) via site #1. via IV pump. Allergies verified and confirmed 5 rights. IV patency established.IV site checked: no pain, redness, or swelling. IV flushed thoroughly pre- and post-medicationadministration. Information reviewed with patient including reason for taking this medication, signs ofallergic reaction and precautions. Verbalizes understanding. --18:39 10/22/19 Simi King R.N.18:51 10/22/2019 Morphine IVP 2 mg given over 2 minute(s) via site #2. Allergies verified and confirmed 5rights. IV patency established. IV site checked: no radha n, redness, or swelling. IV flushed thoroughly pre-and post-medication administration. Information reviewed with patient including reason for taking thismedication, signs of allergic reaction, precautions and sedative warning. Verbalizes understanding.--18:51 10/22/19 Fidencio Theodore R.N.18:52 10/22/2019 Started bag #1 1000 mL IV Fluids IV NS; at 1500 mL/hr over 40 minute(s) via site #2 viaIV pump. Allergies verified and confirmed 5 rights. IV patency established. IV site checked: no pain,redness, or swelling. IV flushed thoroughly pre- and post-medication administration. Information reviewedwith pat ient including reason for taking this medication, signs of allergic reaction and precautions.Verbalizes understanding. --18:52 10/22/19 Fidencio Theodore RRajan.EKG time: (late entry - 18:42 10/22/2019). EKG was ordered, performed by a nurse and shown to the EDphysician. --18:53 10/22/19 Zuri Salazar R.N.Reassurance given. Reassessment acuity: LEVEL 2. Reassessment after medication administered. Noadverse reaction. Pain still present. Overall patient status is improved- she states feels better. ( clarisa made aware patient wants more pain medication. has had 4 mg morphine so far. hold off ongiving anymore bp = 97/50).GI / : The patient reports abdominal pain.SKIN: Skin is warm and dry. Skin color within normal limits. Two patient identifiers checked. Call light 4 Clinical Report - Nurses [facility] Emergency Department [address] [place] [address] Phone #: [phone] ext- [phone] 10/22/2019 18:23 Patient: EUGENIO GOODWIN Sex: F : 1995 Age: 24y placed in reach. Side rails up x 2. Bed placed in lowest position. Brakes of bed on. --19:12 10/22/19 Fidencio Theodore R.NJorge 19:31 10/22/2019 IV Fluids IV NS via IV site #2 Discontinued: bag #1 completed. Total amount infused: 1000 mL. IV patency established. IV site checked: no pain, redness, or swelling. IV flushed thoroughly. --19:41 10/22/19 Fidencio Theodore R.NJorge 19:42 10/22/2019 Protonix IVPB via IV site #1 Discontinued: bag #1 completed. Total amount infused: 100 mL. --19:42 10/22/19 Fidencio Theodore R.NJorge 19:43 10/22/2019 Started bag #2 1000 mL IV Fluids NS; at 1500 mL/hr over 40 minute(s) via site #2 via IV pump. Allergies verified and confirmed 5 rights. IV patency established. IV site checked: no pain, redness, or swelling. IV flushed thoroughly pre- and post-medication administration. Information reviewed with patient including reason for taking this medication, signs of allergic reaction and precautions. Verbalizes understanding. --19:43 10/22/19 Fidencio Theodore RJorgeNJorge 18:45 10/22/19. BP: 108/60. MAP: 76. HR: 71. RR: 16. O2 saturation: 100%. --19:57 10/22/19 Greenpie Fransisca, [employer] 19:07 10/22/19. BP: 97/58. MAP: 71. HR: 63. O2 saturation: 97%. --19:59 10/22/19 Greenpie Fransisca [employer] 19:30 10/22/19. BP: 89/42. MAP: 57. HR: 99. RR: 20. O2 saturation: 100%. --19:59 10/22/19 [facility], [facility] Tech1 19:45 10/22/19. BP: 79/61. MAP: 67. HR: 76. RR: 16. O2 saturation: 100%. --20:00 10/22/19 [facility], Fransisca, ER Tech1 20:24 10/22/2019 IV Fluids NS via IV site #2 Discontinued: bag #2 completed upon admission. Total amount infused: 1000 mL. IV patency established. IV site checked: no pain, redness, or swelling. IV flushed thoroughly. --20:24 10/22/19 Fidencio Theodore R.N.DISPOSITION / DISCHARGE 20:13 10/22/2019 Site #[address] upon admission; patent, no pain and no signs of infection or infiltration. Good blood return present. Flushed with 10 mL saline; flushes easily. --20:23 10/22/19 Fidencio Theodore R.N. 20:18 10/22/19. Departure time: 20:23 10/22/2019. The goals identified in the patient's plan of care were met. Fall risk assessment completed. No risk factors identified. Admitted via Surgery. Transported via stretcher by nurse with IV. Report was given to a nurse in person. Report included information regarding patient's treatment, allergies and condition including: recent changes, current vital signs and critical or pending labs. Report included treatment information regarding medications given or pending; type and amount of IV fluids and medications infusing and total volume infused. All questions were answered. Report was 5 Clinical Report - Nurses [facility] Emergency Department [address] [place] [address] Phone #: ext- [phone] 10/22/2019 18:23 Patient: EUGENIO GOODWIN Sex: F : 1995 Age: 24y acknowledged and care was transferred. --20:25 10/22/19 Fidencio Theodore R.N. 20:23 10/22/19. BP: 96/54. MAP: 68. HR: 90. RR: 26. O2 saturation: 100%. Temp: 98.6 F. Pain level now: 02/16. --20:25 10/22/19 Fidencio Theodore R.N.Locked/Released at 10/25/2019 10:02 by Fidencio Theodore R.N. Name Value Range Interpretation Code Description Data Cindy rce(s) Supporting Document(s) ID Date Data Source [id number] 10/22/2019 06:29:00 PM EDT [facility] 1 Clinical Report - Physicians/Mid Levels [facility] Emergency Department [address] [place] [address] Phone #: ext- [phone] 10/22/2019 18:23 Patient: EUGENIO GOODWIN Sex: F : 1995 Age: 24y Time Seen: 18:19 10/22/2019. Arrived- By ambulance. Historian- EMS personnel. Disposition decision: 20:23 10/22/2019.HISTORY OF PRESENT ILLNESS Chief Complaint: ABDOMINAL PAIN. It is described as "pain", sharp, stabbing, cramping and diffuse and it is described as generalized in location. This started just prior to arrival today Sudden, diffuse abdominal pain after long august today at [facility]. and is still present and worsening. It was abrupt in onset. When seen in the E.D., severity described as severe and 10 / 10. Modifying factors- worsened by movement, walking, cough and deep breaths. The patient has had nausea and loss of appetite. (Pt. said she might be .). No recent travel. Similar symptoms previously. None. Recent medical care: Not recently seen/assessed.REVIEW OF SYSTEMSNo constipation, black stools, hematemesis, difficulty with urination or pain with urination. No urinaryfrequency, bloody stools, fever, headache or sore throat. No blurred vision, chest pain, difficulty breathing,cough or joint pain. No skin rash, chi lls or back pain. Denies current . The patient has nothad weight loss. Might be .PAST HISTORYPast history not negative. See nurses notes. Possibly .SOCIAL HISTORYNever smoker. No alcohol use or drug use. No recent travel.ADDITIONAL NOTESThe nursing notes have been reviewed with agreement regarding the chief complaint, HPI, ROS, PMH andpatient medications and allergies.PHYSICAL EXAMVital Signs: 10/22/2019 18:23 BP: 104/63. MAP: 76. HR: 73. RR: 17. O2 saturation: 100%. Temp: 96.8 F.Pain level now: 03/18. Have been reviewed and appear to be correct. Hypotensive. Heart rate normal .Respiratory rate normal. Temperature normal. Oxygen saturation normal.Appearance: Alert. Oriented X3. Anxious. Appears to be in pain. Patient in severe distress. Indistress.Eyes: Pupils equal, round and reactive to light. Eyes inspection not normal. Pale conjunctivae.ENT: Nose normal. Pharynx abnormal. Dry mucous membranes present.Neck: Normal inspection. Neck supple. 2 Clinical Report - Physicians/Mid [facility] Emergency Department [address] [place] [address] Phone #: ext- [phone] 10/22/2019 18:23 Patient: EUGENIO GOODWIN Sex: F : 1995 Age: 24y CVS: Normal heart rate. Heart sounds normal. Pulses normal. Respiratory: No respiratory distress. Painless inspiration. Breath sounds normal. Chest nontender. Abdomen: Soft. Severe tenderness diffusely. Bowel sounds normal. No organomegaly. No mass. Tenderness present. Back: Normal inspection. Skin: Skin warm and dry. Pallor. Abnormal skin color. No rash. Normal skin turgor. Extremities: Extremities exhibit normal ROM. No lower extremity edema. Neuro: Oriented X 3. No motor deficit. No sensory deficit.LABS, X-RAYS, AND EKGLaboratory Tests: Laboratory tests have been ordered, with results reviewed and considered in themedical decision making process. .BB RBC UNIT: (PATRICIA: 10/22/2019 20:46) ( [facility] 10/22/2019 21:18) Final results RE-TYPE: (PATRICIA: 10/22/2019 20:19) ( [facility] 10/22/2019 20:52) Final results Test Result Flag Units (Reference) RE-TYPE BLOOD BANK RE-TYPE ABO GROUP O RH TYPE POSITIVE { ABO/RH RE-ENTER O POSITIVE Blood Bank -see paper order: (PATRICIA: 10/22/2019 19:32) ( [facility] 10/22/2019 19:36) Canceled CMTS: Type and cross 2 units PRBCs OB 1ST TRI UP TO 14 WEEKS: (PATRICIA: 10/22/2019 19:15) ( [facility] 10/22/2019 19:39) In Progress OB 1ST TRI UP TO 14 WEEKS Reason(s): / Abdominal pain / cramps TRANSPORTATION: S IV? IV?(Yes) O2? Oxygen?(No) Ro : Yes CMTS: Abdominal cramps / Beta-HCG, Quant Serum: (PATRICIA: 10/22/2019 18:36) ( [facility] 10/22/2019 19:39) Final results Test Result Flag Units (Reference) HCG QUANT 01516.0 mIU/mL Interpretation: Less than 5 mU/mL: Negative 6-10 mU/mL: Borderline (suggest repeat in 48 hours) >10: Positive Approx HCG range (mU/mL) Weeks post LMP 5.4-708 mU/mL 3-4 Weeks 217-56377 mU/mL 5-6 Weeks 4059-580049 mU/mL 7-8 Weeks 35121-586885 mU/mL 9-10 Weeks 97520-45117 mU/mL 12-14 Weeks 63942-42326 mU/mL 15-16 Weeks 8240-53579 mU/mL 17-18 Weeks Type and Screen: (PATRICIA: 10/22/2019 18:36) ( MsgRcvd 10/22/2019 20:51) Final results Test Result Flag Units (Reference) ABO GROUP O RH TYPE POSITIVE AB SCREEN NEGATIVE (NORMAL: NEGAT 3 Clinical Report - Physicians/Mid Levels [facility] Emergency Department [address] [place] [address] Phone #: ext- [phone] 10/22/2019 18:23 Patient: EUGENIO GOODWIN Sex: F : 1995 Age: 24y { ABO/RH REENTER O POSITIVE{ AB SCREEN RE-ENTER NEGATIVECrossmatch (Blood Bank): (PATRICIA: 10/22/2019 18:36) ( MsgRcvd 10/22/2019 20:55) Final results Test Result Flag Units (Reference) CROSSMATCH \\MR Hx\\\\16PI\\\\LM10\\\\TM00\\ \\BLDo\\\\UNDo\\COMPATABILITY TESTING:\\UNDx\\\\BLDx\\ \\UNDo\\PATIENTINFORMATION\\UNDx\\ ABO GROUP O RH TYPE POSITIVE AB SCREEN NEGATIVE { ABO/RH RE-ENTER O POSITIVE{ AB SCREEN RE- ENTER NEGATIVE \\UNDo\\DONORINFORMATION\\UNDx\\ UNIT NUMBER _[id number] 10/22/19.DW .[facility]# 63 EXPIRATION DATE _05192_10/22/19.DW .{ ABO/RH O POS{ XMATCH RESULT COMPATABLE{ COMPONENTLRPCCrossmatch (Blood Bank): (PATRICIA: 10/22/2019 18:36) ( MsgRcvd 10/22/2019 20:59) Final results Test Result Flag Units (Reference) CROSSMATCH \\MRHx\\\\16PI\\\\LM10\\\\TM00\\ \\BLDo\\\\UNDo\\COMPATABILITY TESTING:\\UNDx\\\\BLDx\\ \\UNDo\\PATIENTINFORMATION\\UNDx\\ ABO GROUP O RH TYPE POSITIVE AB SCREEN NEGATIVE { ABO/RH RE-ENTER O POSITIVE{ AB SCREEN RE- ENTER NEGATIVE \\UNDo\\DONORINFORMATION\\UNDx\\ UNIT NUMBER _[id number] 10/22/19.DW .[facility]# 64 EXPIRATION DATE _05192_10/22/19.DW .{ ABO/RH O POS{ XMATCH RESULT COMPATIBLE{ COMPONENTLRPCCBC w Diff: (PATRICIA: 10/22/2019 18:36) ( MsgRcvd 10/22/2019 19:14) Final results Test Result Flag Units (Reference) CBC W/AUTOMATED DIFF COMPLETE BLOOD COUNT WBC 12.4 H 10/uL (4.2 - 11.0) RBC 3.56 L 10/uL (4.20 - 5.40) HEMOGLOBIN 9.4 L g/dL (12.0 - 16.0) HEMATOCRIT 29.9 L % (37.0 - 47.0) MCV 84.0 fL (81.0 - 101) MCH 26.4 L pg (27.0 - 34.0) MCHC 31.4 g/dL (31.0 - 36.0) RDW 13.1 % (11.5 - 14.5) PLATELETS 301 10/uL (150 - 450) MPV 10.1 fL (7.4 - 10.4) NEUT 66.2 % (37.0 - 80.0) LYMPH 26.5 % (25.0 - 40.0) MONO 5.1 % (3.0 - 8.0) EOS 1.7 % (0.0 - 7.0) BASO 0.2 % (0.0 - 2.5) %IG 0.3 H % (0.0 - 0.0) %NRBC 0.0 % (0.0 - 0.0) #NEUT 8.20 H 10/uL (2.00 - 6.90) #LYMPH 3.28 10/uL (0.60 - 3.40) 4 Clinical Report - Physicians/Mid Levels [facility] Emergency Department [address] [place] [address] Phone #: pfv- [phone] 10/22/2019 18:23 Patient: EUGENIO GOODWIN Sex: F : 1995 Age: 24y #MONO 0.63 10/uL (0.00 - 0.90) #EOS 0.21 10/uL (0.00 - 0.70) #BASO 0.03 10/uL (0.00 - 0.20) #IG 0.04 10/uL (0.00 - 0.10) #NRBC 0.00 10/uL (0.00 - 0.00) MANUAL DIFF NOT INDICATED RBC MORPH NOT INDICATEDCMP: (PATRICIA: 10/22/2019 18:36) ( MsgRcvd 10/22/2019 19:13) Final results Test Result Flag Units (Reference) COMPREHENSIVE METABOLIC PANEL COMPREHENSIVE METABOLIC PANEL SODIUM 138 mEq/L (134 - 153) POTASSIUM 3.5 L mEq/L (3.6 - 5.0) CHLORIDE 104 mEq/L (98 - 107) CO2 21 L MEQ/L (22 - 30) GLUCOSE 137 H MG/DL (65 - 110) BUN 9 MG/DL (7 - 21) CREATININE 0.6 L MG/DL (0.7 - 1.5) BUN/CREAT 15 (8 - 27) TOTAL PROTEIN 5.8 L G/DL (6.3 - 8.2) ALBUMIN 3.9 G/DL (3.9 - 5.0) GLOBULIN 1.9 L GM/DL (2.4 - 3.2) A/G RATIO 2.1 H (0.8 - 2.0) CALCIUM 8.6 MG/DL (8.4 - 10.2) TOTAL BILI <0.7 MG/DL (0.2 - 1.3) ALKALINE PHOS 46 U/L (38 - 126) SGOT/AST 12 U/L (5 - 40) SGPT/ALT 5 L U/L (7 - 56) ANION GAP 13.0 mmol/L (8.0 - 16.0) AGE 24 yrs NON- AA GFR >60 mL/min AFR AMER GFR >60 mL/min Male GFR Interprentation 20-49 yrs >60 mL/min Npuxxa18-19 yrs >56 mL/min Normal 60- 69 yrs >49 mL/min Normal 70-79yrs>42 mL/min Normal 80 and above >35 mL/min Normal Female GFRInterpretation 20-39 yrs >60 mL/min Normal 40-49 yrs >58 mL/minNormal 50-59 yrs >51 mL/min Normal 60-69 yrs >45 mL/min Cdvcby50-07 yrs >39 mL/min Normal 80 and above >32 mL/min NormalCPK: (PATRICIA: 10/22/2019 18:36) ( [facility] 10/[facility] 19:10) Final results Test Result Flag Units (Reference) CPK 56 U/L (30 - 170)D-Dimer: (PATRICIA: 10/22/2019 18:36) ( WigRcvd 10/22/2019 19:15) Final results Test Result Flag Units (Reference) D-DIMER QUANT 0.64 H ug/mL (0.27 - 0.50)Beta-HCG, Qual Serum: (PATRICIA: 10/22/2019 18:36) ( MsgRcvd 10/22/2019 19:11) Final results Test Result Flag Units (Reference) HCG SERUM QUAL POSITIVE (NORMAL: NEGAT HCG SERUM QL REENTER POSITIVE (NORMAL: NEGAT { KIT LOT # [id number] ){ KIT EXP [id number] ){ PROCEDURAL CONTROL VALID) 5 Clinical Report - Physicians/Mid Levels [facility] Emergency Department [address] [place] [address] Phone #: ext- [phone] 10/22/2019 18:23 Patient: EUGENIO GOODWIN Sex: F : 1995 Age: 24y Lipase: (PATRICIA: 10/22/2019 18:36) ( MsgRcvd 10/22/2019 19:10) Final results Test Result Flag Units (Reference) LIPASE 28 U/L (13 - 60) Lactic Acid: (PATRICIA: 10/22/2019 18:36) ( MsgRcvd 10/22/2019 19:13) Final results Test Result Flag Units (Reference) LACTIC ACID 3.6 HH MMOL/L (0.2 - 2.2) CALL/ READ BACK DR LG REYES BY: LILIA DATE/TIME . Note - Tests: (Pelvic ultrasound - Right ruptured ectopic . FHR 161).PROGRESS AND PROCEDURESCourse of Care: 19:33 Oct 22 2019. Patient is unstable. 19:33 Oct 22 2019. Pt. has ruptured ectopic and I am increasing IV fluids and T x Cross for PRBCs. I have called Dr. Richardson (BID MANAGER mems integration engineer) and he is on the way. Anesthesia and OR team are on the way in. 19:59 Oct 22 2019. Pt. hypotensive and pale. PRBCs are typed and crossed and thawing. OR team is here and BID MANAGER surgeon (Dylan) is on the way. 20:[address] Richardson and OR team just took pt. to OR for surgery. No blood was ready to be transfused here in ED. Critical care performed (120 minutes). Time is exclusive of separate ly billable procedures. Time includes: direct patient care, patient reassessment, coordination of patient care, interpretation of data (laboratory data and pulse oximetry), review of patient's medical records, medical consultation and documentation of patient care- see progress notes. Procedures included in critical care time: peripheral IV placement and phlebotomy- see progress notes. Disposition: Admitted to Obstetrics / Gynecology. 20:24 Oct 22 2019 Pt. to OR for emergent surgery with Dr. Richardson and then to OB service. UTI (catheter associated) was not present prior to admission. Pressure ulcer was not present prior to admission. Vascular infection (catheter associated) was not present prior to admission. Surgical site infection was not present prior to admission. An object left in surgery was not present prior to admission. Blood incompatibility was not present prior to admission. Air embolism was not present prior to admission.CLINICAL IMPRESSION Ruptured right tubal ectopic with hypotension and shock; positive test in emergency department. Ultrasound demonstrated an extrauterine . 6 Clinical Report - Physicians/Mid Levels [facility] Emergency Department [address] [place] [address] Phone #: ext- [phone] 10/22/2019 18:23 Patient: EUGENIO GOODWIN Sex: F : 1995 Age: 24y(Electronically signed by Lg Reyes, Physician 10/23/2019 00:07) Name Value Range Interpretation Code Description Data Cindy rce(s) Supporting Document(s) ID Date Data Source [id number] 10/23/2019 01:33:00 [place] [address] RESPIRATORY CARE REPORT ==== ---------NAME------- NUMBER SEX AGE ADMIT DISC. XRAY# F/C RAJI EUGENIO Loving [id number] 10/22/19 [id number] SB4 O/P DATE OF : 1995 M/R# [id number] #: [id number] LOCATION: EMERGENCY DEPT [facility] [address] [facility] LETE:10/23/19 07:[place] [id number] PHYSICIAN: LAYNE HERR Name Value Range Interpretation Code Description Data Cindy rce(s) Supporting Document(s) ID Date Data Source [id number] 10/23/2019 08:03:00 AM EDT [facility] Name Value Range Interpretation Code Description Data Cindy rce(s) Supporting Document(s) CBC W/AUTOMATED DIFF [facility] COMPLETE BLOOD COUNT Leukocytes [#/volume] in Blood by Automated count 21.2 10^3/uL 4.2 - 11.0 H [facility] Erythrocytes [#/volume] in Blood by Automated count 3.19 10^6/uL 4. 20 - 5.40 L [facility] Hemoglobin [Mass/volume] in Blood 9.2 g/dL 12.0 - 16.0 L [facility] Hematocrit [Volume Fraction] of Blood by Automated count 27.0 % 3 7.0 - 47.0 L [facility] Erythrocyte mean corpuscular volume [Entitic volume] by Auto mated count 84.6 fL 81.0 - 101 [facility] Erythrocyte mean corpuscular hemoglobin [Entitic mass] by Automated count 28.8 pg 27.0 - 34.0 [facility] Erythrocyte mean corpuscular hemoglobin concentration [Mass/volume] by Automated count 34.1 g/dL 31.0 - 36.0 [facility] Erythrocyte distribution width [Ratio] by Automated count 13.2 % 11.5 - 14.5 [facility] Platelets [#/volume] in Blood by Automated count 183 10^3/uL 150 - 45 0 [facility] Platelet mean volume [Entitic volume] in Blood by Automated count 10.5 fL 7.4 - 10.4 H [facility] Neutrophils/100 leukocytes in Blood by Automated count 93.7 % 37. 0 - 80.0 H [facility] Lymphocytes/100 leukocytes in Blood by Manual count 3.7 % 25.0 - 40.0 L [facility] Monocytes/100 leukocytes in Blood by Automated count 2.2 % 3.0 - 8.0 L [facility] Eosinophils/100 leukocytes in Blood by Automated count 0.0 % 0.0 - 7.0 [facility] Basophils/100 leukocytes in Blood by Automated count 0.0 % 0.0 - 2.5 [facility] %IG 0.4 % 0.0 - 0.0 H [facility] al %NRBC 0.0 % 0.0 - 0.0 [facility] al Neutrophils [#/volume] in Blood by Automated count 19.80 10^3/uL 2. 00 - 6.90 H [facility] Lymphocytes [#/volume] in Blood by Automated count 0.79 10^3/uL 0.60 - 3.40 [facility] Monocytes [#/volume] in Blood by Automated count 0.46 10^3/uL 0.00 - 0.90 [facility] Eosinophils [#/volume] in Blood by Automated count 0.00 10^3/uL 0.00 - 0.70 [facility] Basophils [#/volume] in Blood by Automated count 0.01 10^3/uL 0.00 - 0.20 [facility] #IG 0.09 10^3/uL 0.00 - 0.10 [facility] #NRBC 0.00 10^3/uL 0.00 - 0.00 [facility] MANUAL DIFF NOT INDICATED [facility] RBC MORPH NOT INDICATED [facility] sp[facility] ID Date Data Source [id number] 10/22/2019 09:14:00 PM EDT [facility] Name Value Range Interpretation Code Description Data Cindy rce(s) Supporting Document(s) ID Date Data Source [id number] 10/22/2019 08:51:00 PM EDT [facility] Name Value Range Interpretation Code Description Data Cindy rce(s) Supporting Document(s) RE-TYPE [facility] al BLOOD BANK RE-TYPE ABO group [Type] in Blood O [facility] Rh [Type] in Blood POSITIVE [facility] { ABO/RH RE-ENTER O POSITIVE ID Date Data Source [id number] 10/29/2019 12:44:00 PM EDT [facility] Name Value Range Interpretation Code Description Data Cindy rce(s) Supporting Document(s) CULTURE BLOOD [facility] Ho spital _CULTURE BLOOD_{ PRELIM TEST PERFORMED AT [address] [address] CLIA# [id number] SEE SCANNED REPORT ID Date Data Source [id number] 10/28/2019 11:51:00 AM EDT [facility] [address] Name Value Range Interpretation Code Description Data Cindy rce(s) Supporting Document(s) Bacteria identified in Blood by Culture [facility] NO GROWTH AFTER 5 DAYS ID Date Data Source [id number] 10/29/2019 12:43:00 PM EDT [facility] Name Value Range Interpretation Code Description Data Cindy rce(s) Supporting Document(s) CULTURE BLOOD [facility] spital _CULTURE BLOOD_{ PRELIM TEST PERFORMED AT [address] [address] CLIA# [id number] SEE SCANNED REPORT ID Date Data Source [id number] 10/22/2019 08:57:00 PM EDT [facility] Name Value Range Interpretation Code Description Data Cindy rce(s) Supporting Document(s) CROSSMATCH [facility] fang \\MRHx\\\\16PI\\\\LM10\\\\TM00\\ \\BLDo\\\\UN Do\\COMPATABILITY TESTING:\\UNDx\\\\BLDx\\ \\UNDo\\PATIENT INFORMATION\\UNDx\\ ABO group [Type] in Blood O [facility] Rh [Type] in Blood POSITIVE [facility] AB SCREEN NEGATIVE [facility] { ABO/RH RE-ENTER O POSITIVE{ AB SCREEN RE-ENTER NEGATIVE \\UNDo\\DONOR INFORMATION\\UNDx\\ UNIT NUMBER _[id number] 10/22/19.DW .[facility]# 64 EXPIRATION DATE __ 10/22/19.DW .{ ABO/RH O POS{ XMATCH RESULT COMPATIBLE{ COMPONENT LRPC ID Date Data Source [id number] 10/22/2019 08:54:00 PM EDT [facility] Name Value Range Interpretation Code Description Data Cindy rce(s) Supporting Document(s) CROSSMATCH [facility] fang \\MRHx\\\\[id number]\\\\[id number]\\\\[id number]\\ \\BLDo\\\\UN Do\\COMPATABILITY TESTING:\\UNDx\\\\BLDx\\ \\UNDo\\PATIENT INFORMATION\\UNDx\\ ABO group [Type] in Blood O [facility] Rh [Type] in Blood POSITIVE [facility] AB SCREEN NEGATIVE [facility] { ABO/RH RE-ENTER O POSITIVE{ AB SCREEN RE-ENTER NEGATIVE \\UNDo\\DONOR INFORMATION\\UNDx\\ UNIT NUMBER _[id number] 10/22/19.DW .[facility]# 63 EXPIRATION DATE __ 10/22/19.DW .{ ABO/RH O POS{ XMATCH RESULT COMPATABLE{ COMPONENT [facility] ID Date Data Source [id number] 10/22/2019 08:51:00 PM EDT [facility] Name Value Range Interpretation Code Description Data Cindy rce(s) Supporting Document(s) ABO group [Type] in Blood O [facility] Rh [Type] in Blood POSITIVE [facility] AB SCREEN NEGATIVE NORMAL: NEGATIVE [facility] { ABO/RH REENTER O POSITIVE{ AB SCREEN RE-ENTER NEGATIVE ID Date Data Source [id number] 10/22/2019 07:39:00 PM EDT [facility] Name Value Range Interpretation Code Description Data Cindy rce(s) Supporting Document(s) Choriogonadotropin.intact [Units/volume] in Serum or Plasma 86506.0 mIU/mL [facility] Interpr etation: Less than 5 mU/mL: Negative 6-10 mU/mL: Borderline (suggest repeat in 48 hours) >10: Positive Approx HCG range (mU/mL) Weeks post LMP 5.4-708 mU/mL 3-4 Weeks 217-69662 mU/mL 5-6 Weeks 4059-300964 mU/mL 7-8 Weeks 16102-945981 mU/mL 9-10 Weeks 69276-30034 mU/mL 12-14 Weeks 01130-69845 mU/mL 15-16 Weeks 8240 44214 mU/mL 17-18 Weeks ID Date Data Source [id number] 10/22/2019 07:15:00 PM EDT [facility] Name Value Range Interpretation Code Description Data Cindy rce(s) Supporting Document(s) Fibrin D-dimer FEU [Mass/volume] in Platelet poor plasma 0.64 ug /mL 0.27 - 0.50 H [facility] ID Date Data Source [id number] 10/22/2019 07:13:00 PM EDT [facility] Name Value Range Interpretation Code Description Data Cindy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
[2020-07-27] MEDS ORDERED: IBUPROFEN 600MG TAB PO ONE (13:45)
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
[2020-07-27] MEDS ORDERED: IBUP-1022 PO (15:44)
[2020-07-27 17:04] VITALS: BP 112/66
== END 2020-07-27 17:06 | disposition home or self-care (01) ==
LOC: M ED 12:36 → EDBD 12:36 → M ED 17:06
DX: S13.4XXA Sprain of ligaments of cervical spine, initial encounter (principal); T14.8XXA Other injury of unspecified body region, initial encounter; V43.52XA Car driver injured in collision with other type car in traffic accident, initial encounter; Y92.9 Unspecified place or not applicable; Y93.9 Activity, unspecified; Y99.9 Unspecified external cause status